=== PATIENT | male | born 1990 | race Caucasian/White ===

== ENCOUNTER 2022-02-04 09:07 | Outpatient (CLI) | payer BC, SELFPAY ==
[2022-02-04 11:01] LABS: Chloride* 104 mmol/L (96-114)
[2022-02-04 11:02] LABS: Potassium* 4.6 mmol/L (3.6-5.1); Sodium* 138 mmol/L (135-149)
[2022-02-04 11:04] LABS: Cholesterol* 163 mg/dL (90-199); Creatinine* 1.1 mg/dL (0.5-1.5); Estimated Glomerular Filt Rate 92 ml/min
[2022-02-04 11:05] LABS: Blood Urea Nitrogen* 20 mg/dL (5-24); Calcium* 9.6 mg/dL (8.4-10.6); Carbon Dioxide* 28 mmol/L (20-32); Glucose* 107 mg/dL (60-115); HDL Cholesterol* 34 mg/dL (>=40); LDL Cholesterol Calculated 96 mg/dL (<100); Triglycerides* 167 mg/dL (40-149)
== END 2022-02-04 09:08 | disposition home or self-care (01) ==
PROVIDERS: PCP Family Medicine; Visit Provider Family Medicine
DX: Z00.00 Encounter for general adult medical examination without abnormal findings (principal); Z13.6 Encounter for screening for cardiovascular disorders; Z82.49 Family history of ischemic heart disease and other diseases of the circulatory system
CPT/HCPCS: 80048; 80061

== ENCOUNTER 2022-02-18 12:46 | Outpatient (CLI) | payer BC, SELFPAY | END 2022-02-18 12:47 | disposition home or self-care (01) | LOC: RAD 12:48 | PROVIDERS: PCP Family Medicine; Visit Provider Family Medicine | DX: Z82.49 Family history of ischemic heart disease and other diseases of the circulatory system (principal); I35.1 Nonrheumatic aortic (valve) insufficiency | CPT/HCPCS: 93306 ==

== ENCOUNTER 2022-11-20 11:15 | Outpatient (CLI) | payer BC, SELFPAY | END 2022-11-20 11:16 | disposition home or self-care (01) | LOC: NFLDREF 11-21 16:21 | PROVIDERS: PCP Family Medicine; Referring Provider Family Medicine | DX: Z00.00 Encounter for general adult medical examination without abnormal findings (principal) | CPT/HCPCS: 99001 ==

== ENCOUNTER 2023-01-08 15:34 | Outpatient (CLI) | payer BC, SELFPAY ==
--- NOTE | 2023-01-08 15:30 | CRLHL7_ITS ---
For Patients: As a result of the Century Cures Act, medical imaging exams and procedure reports are released immediately into your electronic medical record. You may view this report before your referring provider. If you have questions, please contact your health care provider. Indication: chronic bilateral knee pain Technique: Standing AP view both knees and a lateral view of each knee, four views total Comparison: None Findings: Bones: Alignment is normal. No fractures or bone lesions. Joint spaces: Unremarkable. Soft tissues: Unremarkable. Impression: Normal bilateral knee films. Dictated by Mekhi Soni MD @ 01/09/2023 3:42:02 PM (Electronically Signed)
== END 2023-01-08 15:35 | disposition home or self-care (01) ==
LOC: RAD 15:35
PROVIDERS: PCP Family Medicine; Visit Provider Chiropractor
DX: M25.561 Pain in right knee (principal); M25.562 Pain in left knee
CPT/HCPCS: 73560

== ENCOUNTER 2023-05-15 13:04 | Outpatient (CLI) | payer BC, SELFPAY ==
--- NOTE | 2023-05-15 13:00 | CRLHL7_ITS ---
For Patients: As a result of the Century Cures Act, medical imaging exams and procedure reports are released immediately into your electronic medical record. You may view this report before your referring provider. If you have questions, please contact your health care provider. INDICATION: Left testicular pain. History of right testicular cancer. COMPARISON: none TECHNIQUE: Garcia scale imaging was performed of the scrotum. In addition color Doppler and spectral Doppler analysis was performed of the testes. FINDINGS: The left testicle demonstrates normal arterial and venous blood flow on color Doppler and spectral Doppler analysis. The right testicle is absent. The left testicle has uniform echogenicity with no evidence of a suspicious mass or area of inflammation. The left testis measures 5.9 x 2.7 x 3.6 cm. The left epididymis appears normal. There is no evidence of a hydrocele or varicocele. IMPRESSION: Normal left hemiscrotum. No left testicular mass or inflammation. Dictated by Mekhi Soni MD @ 05/16/2023 10:51:36 AM (Electronically Signed)
== END 2023-05-15 13:05 | disposition home or self-care (01) ==
LOC: US 13:04
PROVIDERS: PCP Nurse Practitioner Family; Visit Provider Family Medicine
DX: N50.812 Left testicular pain (principal)
CPT/HCPCS: 76870; 93976

== ENCOUNTER 2024-11-04 10:12 | Outpatient (CLI) | payer BC, SELFPAY | END 2024-11-04 10:13 | disposition home or self-care (01) | PROVIDERS: PCP Nurse Practitioner Family; Visit Provider Family Medicine | DX: Z11.3 Encounter for screening for infections with a predominantly sexual mode of transmission (principal); Z11.4 Encounter for screening for human immunodeficiency virus [HIV]; Z11.59 Encounter for screening for other viral diseases | CPT/HCPCS: 86592; 86593; 86694; 86703; 86706; 86803; 87340; 87491; 87591 ==